=== PATIENT | male | born 1995 | race Caucasian/White ===

== ENCOUNTER → 2018-03-12 | Outpatient (CLI) | payer BC ==
--- NOTE | 2018-03-14 13:02 | XR ---
EXAMINATION TYPE: XR lumbar spine 2 or 3V DATE OF EXAM: 03/12/2018 COMPARISON: NONE HISTORY: 22-year-old male complaining of chronic low back pain, lumbago TECHNIQUE: 3 views FINDINGS: 5 lumbar type vertebral bodies. Vertebral body heights are preserved and alignment is maintained. Min imal disc interspace narrowing seen variably throughout the lumbar spine. IMPRESSION: Suggestion of minimal disc interspace narrowing throughout; no vertebral compression collapse or carolyn lignment.
== END ==
LOC: RADXRMAIN 16:37
PROVIDERS: ATTEND Family Medicine
DX: M54.40 Lumbago with sciatica, unspecified side (principal)
CPT/HCPCS: 72100

== ENCOUNTER → 2018-03-12 | Outpatient (CLI) | payer BC ==
--- NOTE | 2018-03-14 12:58 | US ---
EXAMINATION TYPE: US scrotum with doppler. DATE OF EXAM: 03/12/2018 COMPARISON: NONE CLINICAL HISTORY: 22-year-old male bilateral Testicular Pain N50.819. ] On left. TECHNIQUE: Grayscale and color Doppler Duplex imaging performed of the scrotum. FINDINGS: EXAM MEASUREMENTS: TESTICLES: Right Testicle: 4.7 x 2.3 x 2.9 cm Left Testicle: 4.7 x 2.3 x 2.8 cm EPIDIDYMIS HEAD: Right Epididymis: 1.2 x 0.8 cm Left Epididymis: 1.1 x 0.8 cm Both testicles show normal homogeneous appearance. Doppler performed to assess for testicular vascula rity; good bilateral color flow and waveforms are seen. There is no evidence of testicular torsion. 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 This is also the area that patient feels lump for two years. Patient pinpointed area and area was scanned directly over where patient pointed out. IMPRESSION: 1. No sonographic evidence for testicular torsion or mass. 2. Patient's palpable lump corresponds to a left-sided varicocele.
== END | disposition home or self-care (01) ==
LOC: RADUSWWP 16:07
PROVIDERS: ATTEND Family Medicine
DX: N50.819 Testicular pain, unspecified (principal)
CPT/HCPCS: 76870; 93975